=== PATIENT | female | born 1975 | race Caucasian/White ===

== ENCOUNTER 2018-02-07 15:55 | Observation (INO) | payer OTHER ==
[2018-02-07] MEDS ORDERED: ACETAMINOPHEN 1000 MG/100 ML VIAL (NON FORMULARY) IVPB ONE (18:59)
[2018-02-07 19:26] LABS: BASO % 0.2 % (0-2.0); EOS % 2.9 % (0-4.5); HEMATOCRIT 34.3 % (32.4-45.2); HEMOGLOBIN 11.4 GM/dL (10.7-15.3); LYMPH % 21.2 % (8-40); MCH 27.7 pg (25.7-33.7); MCHC 33.1 g/dl (32.0-36.0); MEAN CELL VOLUME 83.6 fl (80-96); MEAN PLT VOLUME 10.1 fl (7.5-11.1); MONO % 7.2 % (3.8-10.2); NEUT % 68.5 % (42.8-82.8); PLATELET COUNT 194 K/MM3 (134-434); RBC 4.11 M/mm3 (3.60-5.2); RDW 16.1 % (11.6-15.6); WHITE BLOOD COUNT 9.9 K/mm3 (4.0-10.0)
[2018-02-07] MEDS ORDERED: ACETAMINOPHEN INJECTION 100 ML IVPB ONE (19:28)
[2018-02-07 19:38] LABS: INR 1.14 (0.83-1.09); PROTHROMBIN TIME (PATIENT) 12.9 SEC (9.7-13.0)
[2018-02-07 19:48] LABS: ALBUMIN 3.7 g/dl (3.4-5.0); ANION GAP 8 (8-16); BILIRUBIN,TOTAL 0.4 mg/dL (0.2-1.0); BLOOD UREA NITROGEN 11 mg/dL (7-18); CALCIUM 8.8 mg/dL (8.5-10.1); CHLORIDE 103 mmol/L (98-107); CO2 30 mmol/L (21-32); CREATININE 0.9 mg/dL (0.55-1.02); GLUCOSE,RANDOM 104 mg/dL (74-106); POTASSIUM 4.5 mmol/L (3.5-5.1); SGOT/AST 27 U/L (15-37); SGPT/ALT 30 U/L (12-78); SODIUM 141 mmol/L (136-145); TOT PROT 7.4 g/dl (6.4-8.2)
[2018-02-07 19:49] LABS: ALK PHOS 78 U/L (45-117)
--- NOTE | 2018-02-07 21:08 | PDOC ---
History of Present Illness - General Chief Complaint: Pain Stated Complaint: PCP SENT FOR ADMIT Time Seen by Provider: 02/07/18 18:12 History Source: Patient Exam Limitations: No Limitations - History of Present Illness Initial Comments: This is a 42 YOF with h/o right kidney stone with hydronephrosis with cystoscopy /ureteroscopy/attempted right ureteral stent placement on 02/06/18 which was unsuccessful. She was instructed by her provider Dr. Norman Rae to come to the ED for admission to the hospital for an IR procedure with Dr. White tomorrow. The procedure is a percutaneous right nephrostomy. The patient notes she has been in a significant amount of pain and has not had medication today. She denies any additional symptoms. Past History - Past Medical History Allergies/Adverse Reactions: Allergies Allergy/AdvReac Type Severity Reaction Status Date / Time No Known Allergies Allergy Verified 02/07/18 16:21 Home Medications: Ambulatory Orders NK [No Known Home Medication] 02/07/18 COPD: No - Surgical History Cholecystectomy: Yes - Suicide/Smoking/Psychosocial Hx Smoking History: Never smoked Have you smoked in the past 12 months: No Information on smoking cessation initiated: No Hx Alcohol Use: No Drug/Substance Use Hx: No Substance Use Type: None *Physical Exam - Vital Signs Last Vital Signs Temp Pulse Resp BP Pulse Ox 98.5 F 84 16 121/89 100 02/07/18 16:19 02/07/18 16:19 02/07/18 16:19 02/07/18 16:19 02/07/18 16:19 ED Treatment Course - LABORATORY CBC & Chemistry Diagram: 02/07/18 18:42 02/07/18 18:42 - ADDITIONAL ORDERS Additional order review: Laboratory Results 02/07/18 02/07/18 18:42 18:42 PT with INR 12.90 INR 1.14 H PTT (Actin FS) 29.0 Sodium 141 Potassium 4.5 Chloride 103 Carbon Dioxide 30 Anion Gap 8 BUN 11 Creatinine 0.9 Creat Clearance w eGFR > 60 Random Glucose 104 Calcium 8.8 Total Bilirubin 0.4 AST 27 ALT 30 Alkaline Phosphatase 78 Total Protein 7.4 Albumin 3.7 02/07/18 18:42 RBC 4.11 MCV 83.6 MCHC 33.1 RDW 16.1 H MPV 10.1 Neutrophils % 68.5 Lymphocytes % 21.2 Monocytes % 7.2 Eosinophils % 2.9 Basophils % 0.2 - RADIOLOGY Radiology Studies Ordered: Category Date Time Status CHEST PA & LAT [RAD] Stat Radiology 02/07/18 19:56 Ordered - Medications Given in the ED: ED Medications Discontinued Medications Generic Name Dose Route Start Last Admin Trade Name Iqra PRN Reason Stop Dose Admin Acetaminophen 1,000 mg 02/07/18 18:59 02/07/18 19:34 Ofirmev Injection - IVPB 02/07/18 19:00 1,000 mg ONCE ONE Administration Medical Decision Making - Medical Decision Making 02/07/18 21:23 Adult patient p/w right flank pain 2/2 kidney stone for which she had a failed attempted ureteral stent placement 02/06/18. Sent by Dr. Norman Rae for admission and IR procedure tomorrow. I spoke with Dr. Rae who confirms IR procedure tomorrow with Dr. White, who is aware of the patient. Initial Vital Signs Temp Pulse Resp BP Pulse Ox 98.5 F 84 16 121/89 100 02/07/18 16:19 02/07/18 16:19 02/07/18 16:19 02/07/18 16:19 02/07/18 16:19 Exam: As noted in Physical Exam section. W/U ordered: Pre-admission/pre-op workup as noted below TX ordered: Tylenol EKG: Reviewed; results as noted in ECG Review section. CXR: Laboratory Tests 02/07/18 02/07/18 02/07/18 18:37 18:42 18:42 WBC 9.9 RBC 4.11 Hgb 11.4 Hct 34.3 MCV 83.6 MCH 27.7 MCHC 33.1 RDW 16.1 H Plt Count 194 MPV 10.1 Absolute Neuts (auto) 6.8 Neutrophils % 68.5 Lymphocytes % 21.2 Monocytes % 7.2 Eosinophils % 2.9 Basophils % 0.2 Nucleated RBC % 0 PT with INR 12.90 INR 1.14 H PTT (Actin FS) 29.0 Sodium Potassium Chloride Carbon Dioxide Anion Gap BUN Creatinine Creat Clearance w eGFR Random Glucose Calcium Total Bilirubin AST ALT Alkaline Phosphatase Total Protein Albumin Serum , Qual Negative Blood Type Antibody Screen 02/07/18 02/07/18 18:42 18:42 WBC RBC Hgb Hct MCV MCH MCHC RDW Plt Count MPV Absolute Neuts (auto) Neutrophils % Lymphocytes % Monocytes % Eosinophils % Basophils % Nucleated RBC % PT with INR INR PTT (Actin FS) Sodium 141 Potassium 4.5 Chloride 103 Carbon Dioxide 30 Anion Gap 8 BUN 11 Creatinine 0.9 Creat Clearance w eGFR > 60 Random Glucose 104 Calcium 8.8 Total Bilirubin 0.4 AST 27 ALT 30 Alkaline Phosphatase 78 Total Protein 7.4 Albumin 3.7 Serum , Qual Blood Type A POSITIVE Antibody Screen Negative Reassessment: Patient states pain somewhat improved with Tylenol. Repeat VS: 02/07/18 21:28 The Pt is unsafe for discharge at this time. They require further hospital observation, workup, and treatment. Microblog sent for admission to hospitalist team (at the request of Dr. Norman Rae). *DC/Admit/Observation/Transfer Diagnosis at time of Disposition: Right kidney stone - Discharge Dispostion Condition at time of disposition: Guarded Decision to Admit order: Yes - Referrals - Patient Instructions - Post Discharge Activity
--- NOTE | 2018-02-07 21:25 | PDOC ---
Attending Attestation - Resident Resident Name: Catrachita Pack - ED Attending Attestation I have performed the following: I have examined & evaluated the patient, The case was reviewed & discussed with the resident, I agree w/resident's findings & plan, Exceptions are as noted - Medical Decision Making 02/07/18 21:23 I, Dr. Zohra Perales, DO, attest that this document has been prepared under my direction and personally reviewed by me in its entirety. I further attest, that it accurately reflects all work, treatment, procedures and medical decision -making performed by me. 02/07/18 21:23 a/p: 42yo female with renal colic, grijalva catheter and failed cysto at [facility] -sent by Dr. Rae (urology) for nephrostomy tube placement tomorrow by IR -pt with R renal colic -will send pre-op labs -ekg -cxr -ua/ucx -pt with grijalva catheter in place upon arrival -family at the bedside updated on the plan 02/07/18 21:26 cxr clear labs reviewed and stable ua pending <Zohra Perales - Last Filed: 02/08/18 00:05> - HPI HPI: 02/08/18 01:43 The patient is a 42-year-old female, with a past medical history of renal colic , grijalva catheter in place, who was sent by Dr. Norman Rae from [facility] due to failed cystoscopy. Dr. Rae will be placing a nephrostomy tube tomorrow. Patient has been experiencing dysuria and hematuria. - Physicial Exam PE: 02/08/18 01:44 GENERAL: Awake, alert, and fully oriented, in no acute distress HEAD: No signs of trauma EYES: PERRLA, EOMI, sclera anicteric, conjunctiva clear ENT: Auricles normal inspection, hearing grossly normal, nares patent, oropharynx clear without exudates. Moist mucosa NECK: Normal ROM, supple, no lymphadenopathy, JVD, or masses LUNGS: Breath sounds equal, clear to auscultation bilaterally. No wheezes, and no crackles HEART: Regular rate and rhythm, normal S1 and S2, no murmurs, rubs or gallops ABDOMEN: (+)Suprapubic tenderness. Soft, normoactive bowel sounds. No guarding , no rebound. No masses MSK: (+)Right-sided CVA tenderness. EXTREMITIES: Normal range of motion, no edema. No clubbing or cyanosis. No cords, erythema, or tenderness NEUROLOGICAL: Cranial nerves II through XII grossly intact. SKIN: Warm, Dry, normal turgor, no rashes or lesions noted. <Tonya Vizcarra - Last Filed: 02/08/18 01:48> Heart Score/ECG Review - ECG Intrepretation Comment:: 02/08/18 00:05 sinus at 76, nl axis, nl interval, no acute st/t wave findings <Zohra Perales - Last Filed: 02/08/18 00:05> Attestations - Attestations 02/08/18 01:47 Documentation prepared by Tonya Vizcarra, acting as medical grade shoemaker for Zohra Perales DO. <Tonya Vizcarra - Last Filed: 02/08/18 01:48>
[2018-02-07 22:17] LABS: URINE APPEARANCE CLEAR; URINE BILIRUBIN NEGATIVE (<2.0 mg/dL); URINE COLOR STRAW; URINE GLUCOSE (UA) NEGATIVE (NEGATIVE); URINE KETONE NEGATIVE (NEGATIVE); URINE NITRITE NEGATIVE (NEGATIVE); URINE UROBILINOGEN NEGATIVE mg/dL (0.2-1.0)
[2018-02-07] MEDS: SODIUM CHLORIDE 1,000 ML IV SCH (22:20)
--- NOTE | 2018-02-07 22:21 | HP ---
CHIEF COMPLAINT: Right kidney stone with hydronephrosis PCP: HISTORY OF PRESENT ILLNESS: 42 yo female with recent history R renal calculus and hydronephrosis presented to the ED after being sent by her Urologist Dr. Rae for IR procedure tomorrow. She says that the stone was diagnose 6 days ago at [facility] where she presented with right flank pain. She states that she did have fever while there 3 days ago but has not been febrile since. She underwent cystoscopy and ureteroscopy, however a stent was unable to be placed. Dr Rae discussed case with IR here and plan is for Right Nephrostomy placement tomorrow. She is endorsing 6/10 right flank pain at this time and says at its worst the pain is a 10/10. Review of systems positive for headache, one episode of SOB at [facility] 3 days ago. Pt denies fevers currently, SOB, chest pain, constipation or diarrhea. ER course was notable for: (1) CBC, CMP, Coags within range (2) CXR noted no acute lung pathology (3) UA ordered but uncollected as of now Recent Travel: none PAST MEDICAL HISTORY: none PAST SURGICAL HISTORY: Cholecystectomy Social History: Smoking: none Alcohol: none Drugs: none Family History: Allergies No Known Allergies Allergy (Verified 02/07/18 16:21) HOME MEDICATIONS: Home Medications Medication Instructions Recorded NK [No Known Home Medication] 02/07/18 REVIEW OF SYSTEMS CONSTITUTIONAL: Absent: fever, chills, diaphoresis, generalized weakness, malaise, loss of appetite, weight change HEENT: Absent: rhinorrhea, nasal congestion, throat pain, throat swelling, difficulty swallowing, mouth swelling, ear pain, eye pain, visual changes CARDIOVASCULAR: Absent: chest pain, syncope, palpitations, irregular heart rate, lightheadedness , peripheral edema RESPIRATORY: Absent: cough, shortness of breath, dyspnea with exertion, orthopnea, wheezing, stridor, hemoptysis GASTROINTESTINAL: abdominal pain Absent: , abdominal distension, nausea, vomiting, diarrhea, constipation, melena , hematochezia GENITOURINARY: flank pain Absent: dysuria, frequency, urgency, hesitancy, hematuria, , genital pain MUSCULOSKELETAL: Absent: myalgia, arthralgia, joint swelling, back pain, neck pain SKIN: Absent: rash, itching, pallor HEMATOLOGIC/IMMUNOLOGIC: Absent: easy bleeding, easy bruising, lymphadenopathy, frequent infections ENDOCRINE: Absent: unexplained weight gain, unexplained weight loss, heat intolerance, cold intolerance NEUROLOGIC: Absent: headache, focal weakness or paresthesias, dizziness, unsteady gait, seizure, mental status changes, bladder or bowel incontinence PSYCHIATRIC: Absent: anxiety, depression, suicidal or homicidal ideation, hallucinations. PHYSICAL EXAMINATION Vital Signs - 24 hr 02/07/18 02/07/18 16:19 21:14 Temperature 98.5 F Pulse Rate 84 Pulse Rate [ 79 Radial] Respiratory 16 18 Rate Blood Pressure 121/89 Blood Pressure 131/79 [Right Arm] O2 Sat by Pulse 100 100 Oximetry (%) GENERAL: A&O, no acute distress HEAD: Normocephalic, atraumatic. EYES: PERRL, EOMI, no scleral icterus EARS, NOSE, THROAT: oropharynx clear without exudates. Moist mucous membranes. NECK: supple without lymphadenopathy LUNGS: CTA b/l, no crackles or wheezes HEART: Regular rate and rhythm, normal S1 and S2 without murmur, rub or gallop. ABDOMEN: Tender to palpation diffusely, worst on the right flank with gaurding, normoactive bowel sounds : Mendez in place and draining urine MUSCULOSKELETAL: No bony deformities or tenderness. No CVA tenderness. UPPER EXTREMITIES: 2+ pulses, warm, well-perfused. No cyanosis. No clubbing. No peripheral edema. LOWER EXTREMITIES: 2+ pulses, warm, well-perfused. No calf tenderness. No peripheral edema. NEUROLOGICAL: Cranial nerves II-XII grossly intact. Normal speech. PSYCHIATRIC: Cooperative. Good eye contact. Appropriate mood and affect. SKIN: Warm, dry, normal turgor, no rashes or lesions noted Laboratory Results - last 24 hr 02/07/18 02/07/18 02/07/18 18:37 18:42 18:42 WBC 9.9 RBC 4.11 Hgb 11.4 Hct 34.3 MCV 83.6 MCH 27.7 MCHC 33.1 RDW 16.1 H Plt Count 194 MPV 10.1 Absolute Neuts (auto) 6.8 Neutrophils % 68.5 Lymphocytes % 21.2 Monocytes % 7.2 Eosinophils % 2.9 Basophils % 0.2 Nucleated RBC % 0 PT with INR 12.90 INR 1.14 H PTT (Actin FS) 29.0 Sodium Potassium Chloride Carbon Dioxide Anion Gap BUN Creatinine Creat Clearance w eGFR Random Glucose Calcium Total Bilirubin AST ALT Alkaline Phosphatase Total Protein Albumin Serum , Qual Negative Blood Type Antibody Screen 02/07/18 02/07/18 18:42 18:42 WBC RBC Hgb Hct MCV MCH MCHC RDW Plt Count MPV Absolute Neuts (auto) Neutrophils % Lymphocytes % Monocytes % Eosinophils % Basophils % Nucleated RBC % PT with INR INR PTT (Actin FS) Sodium 141 Potassium 4.5 Chloride 103 Carbon Dioxide 30 Anion Gap 8 BUN 11 Creatinine 0.9 Creat Clearance w eGFR > 60 Random Glucose 104 Calcium 8.8 Total Bilirubin 0.4 AST 27 ALT 30 Alkaline Phosphatase 78 Total Protein 7.4 Albumin 3.7 Serum , Qual Blood Type A POSITIVE Antibody Screen Negative ASSESSMENT/PLAN: 42 yo female with no PMH presents with prior dx of Right renal calculus with hydronephrosis s/p cystoscopy/ureteroscopy with failed stent placement. Found to have UTI with clinical appearance of pyelonephritis. Presents for nephrostomy placement tomorrow by IR Renal Calculus with [place] -dx at [facility] 6 days ago -s/p failed stent placement -Renal U/S -CT abdomen and pelvis -IR nephrostomy scheduled -Pain control with Tylenol and Morphine -Mendez in place and draining urine Pyelonephritis -UA with 2+ Leukocyte esterase, 25 WBC's -Pt has CVA tenderness on exam in addition to guarding and tenderness of the right flank, suggestive of pyelo -Rocephin 2 gm IV Daily -Urine c/s ordered FEN -Fluids: NS @ 75 cc/hr -Electrolytes: no abnormalities, BMP in AM -Nutrition: NPO for nephrostomy in AM DVT Prophylaxis -Heparin 5000 Units SQ TID Disposition Observation Visit type - Emergency Visit Emergency Visit: Yes ED Registration Date: 02/07/18 Care time: The patient presented to the Emergency Department on the above date and was hospitalized for further evaluation of their emergent condition. - New Patient This patient is new to me today: Yes Date on this admission: 02/08/18 - Critical Care Critical Care patient: No Hospitalist Screening - Colonoscopy Questionnaire Colonoscopy Questionnaire: Colonoscopy Questionnaire - Patient: 50 - 75 years old and never had a screening colonoscopy: No History of colon or rectal polyps, or CA: No History of IBD, Crohn's disease or UC: No History of abdominal radiation therapy as a child: No - Relative: 1 with colon or rectal CA, or polyps at age 60 or younger: No Colon or rectal CA diagnosed at age 45 or younger: No Multiple relatives with colon or rectal CA: No - Outcome: Screening Result: Negative Screen
[2018-02-07 22:56] LABS: URINE LEUK ESTERASE 2+ (NEGATIVE); URINE PROTEIN 1+ (NEGATIVE)
[2018-02-07 23:01] LABS: EPI CELLS RARE /HPF (FEW); URINE MUCUS RARE
[2018-02-08] MEDS ORDERED: KETOROLAC TROMETHAMINE 15 MG/ML VIAL IVPUSH ONE (00:28)
[2018-02-08] MEDS ORDERED: KETOROLAC TROMETHAMINE 30 MG/1 ML VIAL ONE (00:35)
[2018-02-08] MEDS ORDERED: PHENAZOPYRIDINE HCL 100 MG TABLET (FP) PO ONE (00:41)
[2018-02-08] MEDS ORDERED: PHENAZOPYRIDINE HCL 100 MG TABLET (FP) ONE (01:00)
--- NOTE | 2018-02-08 02:38 | PN ---
Teaching Attending Note Name of Resident: Mak Devries ATTENDING PHYSICIAN STATEMENT I saw and evaluated the patient. Chart, data, imaging reviewed. I reviewed the resident's note and discussed the case with the resident. I agree with the resident's findings and plan as documented. SUBJECTIVE: 42 yo woman with hx of right sided nephrolithiasis was sent to hospital by Dr. Rae for placement of right sided nephrostomy after unsuccessful attempt to place right sided ureter stent. Patient c/o right sided flank pain for the last 3 days. One episode of subjective fevers and chills 3 days ago. +Nausea and vomiting. OBJECTIVE: Last Vital Signs Temp Pulse Resp BP Pulse Ox 98.5 F 79 18 131/79 100 02/07/18 16:19 02/07/18 21:14 02/07/18 21:14 02/07/18 21:14 02/07/18 21:14 General- nad, aaox3 heent- at, nc, moist oral mucosa neck -supple cv- s1+S2+ rrr chest- cta b/l abdomen- soft, bs+, right sided flank tenderness, +CVA tenderness ext - no pedal edema Abnormal Lab Results 02/07/18 02/07/18 02/07/18 18:42 18:42 22:00 RDW 16.1 H INR 1.14 H Urine Protein 1+ H Urine Blood 3+ H Ur Leukocyte Esterase 2+ H ASSESSMENT AND PLAN: #42yo woman with Hx of right sided nephrolithiasis for placement of right sided nephrostomy. Cannot r/o pyelonephritis as there is pyuria on UA and right sided flank tenderness. -observation -urology consult -CT of abdomen and pelvis -IV fluid hydration -urine culture -ceftriaxone 1g IV q24hrs -NPO -heparin sc for DVT ppx
[2018-02-08] MEDS ORDERED: morphine SULFATE 4 MG/ML VIAL IVPUSH PRN (02:47)
[2018-02-08] MEDS ORDERED: CEFTRIAXONE 2 GM in DEXTROSE 5%-WATER 100 ML IVPB ONE (03:15)
[2018-02-08] MEDS ORDERED: CEFTRIAXONE 2 GM/100 ML BAG IVPB ONE (04:31)
[2018-02-08 07:22] LABS: BASO % 0.2 % (0-2.0); EOS % 4.8 % (0-4.5); HEMATOCRIT 32.5 % (32.4-45.2); LYMPH % 25.9 % (8-40); MCH 28.3 pg (25.7-33.7); MEAN CELL VOLUME 83.4 fl (80-96); MONO % 7.8 % (3.8-10.2); NEUT % 61.3 % (42.8-82.8); PLATELET COUNT 183 K/MM3 (134-434); RDW 15.9 % (11.6-15.6); WHITE BLOOD COUNT 7.8 K/mm3 (4.0-10.0)
[2018-02-08 08:40] LABS: CHLORIDE 106 mmol/L (98-107); POTASSIUM 4.7 mmol/L (3.5-5.1); SODIUM 143 mmol/L (136-145)
[2018-02-08 08:57] LABS: ALBUMIN 3.3 g/dl (3.4-5.0); ALK PHOS 77 U/L (45-117); ANION GAP 10 (8-16); BILIRUBIN,TOTAL 0.3 mg/dL (0.2-1.0); BLOOD UREA NITROGEN 9 mg/dL (7-18); CALCIUM 8.6 mg/dL (8.5-10.1); CO2 27 mmol/L (21-32); CREATININE 0.7 mg/dL (0.55-1.02); GLUCOSE,RANDOM 90 mg/dL (74-106); MAGNESIUM 2.1 mg/dL (1.8-2.4); PHOSPHOROUS 3.6 mg/dL (2.5-4.9); SGOT/AST 21 U/L (15-37); SGPT/ALT 27 U/L (12-78); TOT PROT 6.9 g/dl (6.4-8.2)
[2018-02-08] MEDS: SODIUM CHLORIDE 1,000 ML IV SCH ×2 (10:44→23:31)
[2018-02-08] MEDS ORDERED: morphine SULFATE 4 MG/ML VIAL ONE (13:09)
--- NOTE | 2018-02-08 14:19 | PN ---
Teaching Attending Note Name of Resident: Hiren Moreno ATTENDING PHYSICIAN STATEMENT I reviewed the resident's note and discussed the case with the resident. I agree with the resident's findings and plan as documented. pt has been in the OR for procedure. case d/w resident ASSESSMENT AND PLAN: 42yo F with recent dx of R nephrolithasis with failed attempt for UV stent placement at [facility] on 02/06/18 presented here iwth worsening R flank pain with assoc with chills 1. R nephrolithasis with hydronephrosis- failed attempt at stent placement. NPO for nephrostomy tube placement. in procedure now. will f/u urology recommendations post-procedure. pain control 2. Complicated UTI- no per-renal stranding suggestive of pyleo. started on Ceftriaxone. will cont f/u Cx. 3. DVT ppx- hep sq
--- NOTE | 2018-02-08 15:35 | EKG ---
Test Reason : Blood Pressure : / mmHG Vent. Rate : 076 BPM Atrial Rate : 076 BPM P-R Int : 126 ms QRS Dur : 074 ms QT Int : 378 ms P-R-T Axes : 053 038 014 degrees QTc Int : 425 ms NORMAL SINUS RHYTHM NORMAL ECG NO PREVIOUS ECGS AVAILABLE Confirmed by PHILIP VILLATORO MD ([id number]) on 02/08/2018 3:34:47 PM Referred By: Confirmed By:PHILIP VILLATORO MD
[2018-02-08] MEDS ORDERED: ONDANSETRON 4 MG/2 ML VIAL IVPUSH ONE (15:45)
[2018-02-08 16:50] VITALS: BMI 24.3
--- NOTE | 2018-02-08 17:30 | PN ---
Physical Exam: SUBJECTIVE: Patient seen and examined at bedside. admitted overnight. no new complaints. underwent this morning for nephrostomy w/ IR. Denies any fever, CP , SOB, n/v/d. OBJECTIVE: Vital Signs Period Temp Pulse Resp BP Sys/Xiao Pulse Ox Last 24 Hr 98.1 F-98.2 F 72-93 12-20 105-166/68-97 97-100 GENERAL: A&Ox3, mild acute distress HEAD: NCAT EYES: PERRL, EOMI, no scleral icterus EARS, NOSE, THROAT: oropharynx clear without exudates. MMM NECK: supple without lymphadenopathy LUNGS: CTA b/l, no crackles or wheezes HEART: RRR, normal S1 and S2 without murmur, rub or gallop. ABDOMEN: Tender to palpation diffusely, worst on the right flank with guarding, normoactive bowel sounds : Mendez in place and draining urine MUSCULOSKELETAL: No bony deformities or tenderness. +CVA tenderness. UPPER EXTREMITIES: 2+ pulses, warm, well-perfused. No cyanosis. No clubbing. No peripheral edema. LOWER EXTREMITIES: 2+ pulses, warm, well-perfused. No calf tenderness. No peripheral edema. NEUROLOGICAL: Cranial nerves II-XII grossly intact. Normal speech. PSYCHIATRIC: Cooperative. Good eye contact. Appropriate mood and affect. SKIN: Warm, dry, normal turgor, no rashes or lesions noted Laboratory Results - last 24 hr 02/07/18 02/07/18 02/07/18 18:37 18:42 18:42 WBC 9.9 RBC 4.11 Hgb 11.4 Hct 34.3 MCV 83.6 MCH 27.7 MCHC 33.1 RDW 16.1 H Plt Count 194 MPV 10.1 Absolute Neuts (auto) 6.8 Neutrophils % 68.5 Lymphocytes % 21.2 Monocytes % 7.2 Eosinophils % 2.9 Basophils % 0.2 Nucleated RBC % 0 PT with INR 12.90 INR 1.14 H PTT (Actin FS) 29.0 Sodium Potassium Chloride Carbon Dioxide Anion Gap BUN Creatinine Creat Clearance w eGFR Random Glucose Calcium Phosphorus Magnesium Total Bilirubin AST ALT Alkaline Phosphatase Total Protein Albumin Serum , Qual Negative Urine Color Urine Appearance Urine pH Ur Specific [place] Urine Protein Urine Glucose (UA) Urine Ketones Urine Blood Urine Nitrite Urine Bilirubin Urine Urobilinogen Ur Leukocyte Esterase Urine WBC (Auto) Urine RBC (Auto) Ur Epithelial Cells Urine Mucus Blood Type Antibody Screen 02/07/18 02/07/18 02/07/18 18:42 18:42 22:00 WBC RBC Hgb Hct MCV MCH MCHC RDW Plt Count MPV Absolute Neuts (auto) Neutrophils % Lymphocytes % Monocytes % Eosinophils % Basophils % Nucleated RBC % PT with INR INR PTT (Actin FS) Sodium 141 Potassium 4.5 Chloride 103 Carbon Dioxide 30 Anion Gap 8 BUN 11 Creatinine 0.9 Creat Clearance w eGFR > 60 Random Glucose 104 Calcium 8.8 Phosphorus Magnesium Total Bilirubin 0.4 AST 27 ALT 30 Alkaline Phosphatase 78 Total Protein 7.4 Albumin 3.7 Serum , Qual Urine Color Straw Urine Appearance Clear Urine pH 6.0 Ur Specific [place] 1.008 Urine Protein 1+ H Urine Glucose (UA) Negative Urine Ketones Negative Urine Blood 3+ H Urine Nitrite Negative Urine Bilirubin Negative Urine Urobilinogen Negative Ur Leukocyte Esterase 2+ H Urine WBC (Auto) 25 Urine RBC (Auto) 12 Ur Epithelial Cells Rare Urine Mucus Rare Blood Type A POSITIVE Antibody Screen Negative 02/08/18 02/08/18 06:30 06:30 WBC 7.8 RBC 3.90 Hgb 11.0 Hct 32.5 MCV 83.4 MCH 28.3 MCHC 34.0 RDW 15.9 H Plt Count 183 MPV 10.0 Absolute Neuts (auto) 4.8 Neutrophils % 61.3 Lymphocytes % 25.9 D Monocytes % 7.8 Eosinophils % 4.8 H Basophils % 0.2 Nucleated RBC % 0 PT with INR INR PTT (Actin FS) Sodium 143 Potassium 4.7 Chloride 106 Carbon Dioxide 27 Anion Gap 10 BUN 9 Creatinine 0.7 Creat Clearance w eGFR > 60 Random Glucose 90 Calcium 8.6 Phosphorus 3.6 Magnesium 2.1 Total Bilirubin 0.3 AST 21 ALT 27 Alkaline Phosphatase 77 Total Protein 6.9 Albumin 3.3 L Serum , Qual Urine Color Urine Appearance Urine pH Ur Specific [place] Urine Protein Urine Glucose (UA) Urine Ketones Urine Blood Urine Nitrite Urine Bilirubin Urine Urobilinogen Ur Leukocyte Esterase Urine WBC (Auto) Urine RBC (Auto) Ur Epithelial Cells Urine Mucus Blood Type Antibody Screen Active Medications Generic Name Dose Route Start Last Admin Trade Name Freq PRN Reason Stop Dose Admin Acetaminophen 1,000 mg 02/07/18 22:22 Ofirmev Injection - IVPB Q6H PRN PAIN LEVEL 4 - 6 Sodium Chloride 1,000 mls @ 75 mls/hr 02/07/18 22:15 02/08/18 10:44 Normal Saline - IV 75 mls/hr ASDIR ZAHIRA Administration Morphine Sulfate 4 mg 02/08/18 02:47 02/08/18 13:27 Morphine Sulfate IVPUSH 4 mg Q4H PRN Administration PAIN LEVEL 7 - 10 ASSESSMENT/PLAN: 42 yo female with no PMH presents with prior dx of Right renal calculus with hydronephrosis s/p cystoscopy/ureteroscopy with failed stent placement at [facility] on 02/06/18, p/w worsening R flank pain and chills Found to have UTI with clinical appearance of pyelonephritis. Now s/p nephrostomy placement by IR. #R nephrolithasis with hydronephrosis - s/p failed stent placement -dx at [facility] 6 days ago -Renal U/S -CT abdomen and pelvis -Now s/p IR nephrostomy -Pain control with Tylenol and Morphine -Mendez in place and draining urine -f/u urology recommendations post-procedure. -zofran for nausea #Complicated UTI - no per-renal stranding suggestive of pyleo on imaging -UA with 2+ Leukocyte esterase, 25 WBC's -Rocephin 2 gm IV Daily -Urine cx were uncollected -f/u nephrostomy tube fluid cx #FEN -Fluids: NS @ 75 cc/hr -Electrolytes: no abnormalities, BMP in AM -Nutrition: regular diet following procedure #DVT Prophylaxis -Heparin 5000 Units SQ TID #Disposition medsurg Visit type - Emergency Visit Emergency Visit: Yes ED Registration Date: 02/07/18 Care time: The patient presented to the Emergency Department on the above date and was hospitalized for further evaluation of their emergent condition. - New Patient This patient is new to me today: Yes Date on this admission: 02/08/18 - Critical Care Critical Care patient: No
[2018-02-08] MEDS: ACETAMINOPHEN 1000 MG/100 ML VIAL (NON FORMULARY) IVPB PRN (19:56)
[2018-02-09] MEDS: ACETAMINOPHEN 1000 MG/100 ML VIAL (NON FORMULARY) IVPB PRN ×3 (01:26→11:50)
[2018-02-09 08:10] LABS: INR 1.19 (0.83-1.09); PROTHROMBIN TIME (PATIENT) 13.4 SEC (9.7-13.0)
--- NOTE | 2018-02-09 08:21 | CONS ---
DATE OF CONSULTATION: DATE OF DICTATION: 02/08/2018 The patient is a 42-year-old female admitted via the emergency room with right renal colic and right hydronephrosis. The patient was an inpatient at [facility], where she was admitted via the emergency room with right hydronephrosis due to a 5-mm stone in the right ureterovesical junction. After 3 days of conservative treatment with fluids and Flomax, the patient was taken to the OR and multiple attempts at passage of a Glidewire and/or stent were unsuccessful due to an impacted right ureterovesical stone inside a right ureterocele. The patient was discharged from the hospital and was add to [facility] via the emergency room, complaining of right flank pain. She is to undergo a right percutaneous nephrostomy to relieve her right hydroureteronephrosis as well as right renal colic with possible infundibular extravasation of urine in the right perirenal space. The patient does have history of a cholecystectomy in the past. She denies any ethanol or tobacco. In the emergency room, the patient was afebrile. Her pulse was 84, respirations 16, blood pressure 121/89, O2 saturation 100%. Her CBC revealed a white count of 9.9, hemoglobin 11.4, hematocrit 34.3, platelets 194. The patient's BUN and creatinine were within normal limits at 11 and 0.9, respectively. PT/INR was 12.9/1.14. Anion gap was 8. The patient had a CAT scan in the emergency room, and this revealed a right hydroureteronephrosis with a 5-mm stone impacted at the right ureterovesical junction. The patient also had non-obstructing stones in the left kidney. A Mendez catheter was seen in the bladder, which was collapsed. On February 08, 2018, the patient underwent percutaneous nephrostomy tube placement on the right side. She had a benign and uneventful postoperative course. Presently the patient is afebrile. She denies nausea, vomiting or flank pain. Her white count is 9.9. Her urine culture is pending. Nephrostomy tube drainage is also pending. Her latest vital signs revealed a temperature of 98 and a blood pressure of 146/86. The patient is presently urologically cleared for discharge. We will schedule the patient electively, in 1 week's time, to undergo a ureteroscopic laser lithotripsy, placement of a JJ stent and removal of her right percutaneous nephrostomy tube. I will follow with you. JOE ENCINAS M.D. [id number]
[2018-02-09 08:28] LABS: BASO % 0.3 % (0-2.0); HEMOGLOBIN 11.2 GM/dL (10.7-15.3); LYMPH % 22.8 % (8-40); MCH 28.4 pg (25.7-33.7); MEAN CELL VOLUME 83.7 fl (80-96); MEAN PLT VOLUME 9.8 fl (7.5-11.1); MONO % 8.1 % (3.8-10.2); NEUT % 62.8 % (42.8-82.8); PLATELET COUNT 185 K/MM3 (134-434); RBC 3.95 M/mm3 (3.60-5.2); WHITE BLOOD COUNT 8.7 K/mm3 (4.0-10.0)
[2018-02-09 08:43] LABS: ALBUMIN 3.5 g/dl (3.4-5.0); ANION GAP 9 (8-16); BLOOD UREA NITROGEN 8 mg/dL (7-18); CALCIUM 8.9 mg/dL (8.5-10.1); CHLORIDE 105 mmol/L (98-107); CO2 27 mmol/L (21-32); CREATININE 0.7 mg/dL (0.55-1.02); GLUCOSE,RANDOM 88 mg/dL (74-106); MAGNESIUM 1.9 mg/dL (1.8-2.4); PHOSPHOROUS 3.7 mg/dL (2.5-4.9); POTASSIUM 4.6 mmol/L (3.5-5.1); SGOT/AST 19 U/L (15-37); SGPT/ALT 28 U/L (12-78); SODIUM 141 mmol/L (136-145)
[2018-02-09 08:45] LABS: ALK PHOS 75 U/L (45-117); BILIRUBIN,TOTAL 0.4 mg/dL (0.2-1.0)
--- NOTE | 2018-02-09 08:55 | PN ---
Teaching Attending Note Name of Resident: Hiren Moreno (y) ATTENDING PHYSICIAN STATEMENT I saw and evaluated the patient. I reviewed the resident's note and discussed the case with the resident. I agree with the resident's findings and plan as documented. SUBJECTIVE: Patient is c/o having back pain and does not want to go home. OBJECTIVE: Vital Signs Temperature 98.3 F 02/09/18 06:00 Pulse Rate 73 02/09/18 06:00 Respiratory Rate 18 02/09/18 06:00 Blood Pressure 126/85 02/09/18 06:00 O2 Sat by Pulse Oximetry (%) 100 02/08/18 21:00 CBCD WBC 8.7 K/mm3 (4.0-10.0) 02/09/18 07:30 RBC 3.95 M/mm3 (3.60-5.2) 02/09/18 07:30 Hgb 11.2 GM/dL (10.7-15.3) 02/09/18 07:30 Hct 33.0 % (32.4-45.2) 02/09/18 07:30 MCV 83.7 fl (80-96) 02/09/18 07:30 MCHC 34.0 g/dl (32.0-36.0) 02/09/18 07:30 RDW 16.0 % (11.6-15.6) H 02/09/18 07:30 Plt Count 185 K/MM3 (134-434) 02/09/18 07:30 MPV 9.8 fl (7.5-11.1) 02/09/18 07:30 CMP Sodium 141 mmol/L (136-145) 02/09/18 07:30 Potassium 4.6 mmol/L (3.5-5.1) 02/09/18 07:30 Chloride 105 mmol/L (98-107) 02/09/18 07:30 Carbon Dioxide 27 mmol/L (21-32) 02/09/18 07:30 Anion Gap 9 (8-16) 02/09/18 07:30 BUN 8 mg/dL (7-18) 02/09/18 07:30 Creatinine 0.7 mg/dL (0.55-1.02) 02/09/18 07:30 Creat Clearance w eGFR > 60 (>60) 02/09/18 07:30 Random Glucose 88 mg/dL (74-106) 02/09/18 07:30 Calcium 8.9 mg/dL (8.5-10.1) 02/09/18 07:30 Total Bilirubin 0.4 mg/dL (0.2-1.0) 02/09/18 07:30 AST 19 U/L (15-37) 02/09/18 07:30 ALT 28 U/L (12-78) 02/09/18 07:30 Alkaline Phosphatase 75 U/L (45-117) 02/09/18 07:30 Total Protein 7.0 g/dl (6.4-8.2) 02/09/18 07:30 Albumin 3.5 g/dl (3.4-5.0) 02/09/18 07:30 Current Medications Generic Name Dose Route Start Last Admin Trade Name Freq PRN Reason Stop Dose Admin Acetaminophen 1,000 mg 02/07/18 22:22 02/09/18 07:01 Ofirmev Injection - IVPB 1,000 mg Q6H PRN Administration PAIN LEVEL 4 - 6 Sodium Chloride 1,000 mls @ 75 mls/hr 02/07/18 22:15 02/08/18 23:31 Normal Saline - IV 75 mls/hr ASDIR ZAHIRA Administration Ceftriaxone Sodium 2 gm/ 100 mls @ 200 mls/hr 02/09/18 10:00 Dextrose IVPB DAILY ZAHIRA Protocol Morphine Sulfate 4 mg 02/08/18 02:47 02/08/18 13:27 Morphine Sulfate IVPUSH 4 mg Q4H PRN Administration PAIN LEVEL 7 - 10 Home Medications Medication Instructions Recorded NK [No Known Home Medication] 02/07/18 Microbiology 02/08/18 12:40 Nephrostomy Tube Drainage Gram Stain - Final PE; per resident's note ASSESSMENT AND PLAN: 42yo F with recent dx of R nephrolithasis with failed attempt for JJ stent placement at [facility] on 02/06/18 presented here eith worsening R flank pain and chills # R nephrolithasis with hydronephrosis- failed attempt at stent placement. s/p right nephrostomy tube placement. in procedure now. will f/u urology recommendations post-procedure. pain control # Complicated UTI/pylonephritis on IV Ceftriaxone. culture so far negative . DVT ppx- hep sq
[2018-02-09] MEDS ORDERED: DEXTROSE 5%-WATER 100 ML IVPB ONE (09:30)
[2018-02-09] MEDS: CEFTRIAXONE 2 GM in DEXTROSE 5%-WATER 100 ML IVPB SCH (09:52)
[2018-02-09] MEDS ORDERED: ACETAMINOPHEN/CAFFEINE/BUTALBITAL 1 TAB PO ONE (15:02)
--- NOTE | 2018-02-09 16:36 | PN ---
Physical Exam: SUBJECTIVE: Patient seen and examined at bedside. c/o back pain and dizziness. underwent yesterday nephrostomy w/ IR. Denies any fever, CP , SOB, n/v/d. OBJECTIVE: Vital Signs Period Temp Pulse Resp BP Sys/Xiao Pulse Ox Last 24 Hr 97.6 F-98.6 F 67-75 18-20 126-146/80-88 100-100 GENERAL: A&Ox3, mild acute distress HEAD: NCAT EYES: PERRL, EOMI, no scleral icterus EARS, NOSE, THROAT: oropharynx clear without exudates. MMM NECK: supple without lymphadenopathy LUNGS: CTA b/l, no crackles or wheezes HEART: RRR, normal S1 and S2 without murmur, rub or gallop. ABDOMEN: Tender to palpation diffusely, worst on the right flank with guarding, normoactive bowel sounds : pt has grijalva draining yellow-clear urine no clots. Nephrostomy tube in place , serosanguinous fluid. no pus or discharge. MUSCULOSKELETAL: No bony deformities or tenderness. +CVA tenderness. UPPER EXTREMITIES: 2+ pulses, warm, well-perfused. No cyanosis. No clubbing. No peripheral edema. LOWER EXTREMITIES: 2+ pulses, warm, well-perfused. No calf tenderness. No peripheral edema. NEUROLOGICAL: Cranial nerves II-XII grossly intact. Normal speech. PSYCHIATRIC: Cooperative. Good eye contact. Appropriate mood and affect. SKIN: Warm, dry, normal turgor, no rashes or lesions noted Laboratory Results - last 24 hr 02/08/18 02/09/18 02/09/18 19:25 07:30 07:30 WBC 8.7 RBC 3.95 Hgb 11.2 Hct 33.0 MCV 83.7 MCH 28.4 MCHC 34.0 RDW 16.0 H Plt Count 185 MPV 9.8 Absolute Neuts (auto) 5.5 Neutrophils % 62.8 Lymphocytes % 22.8 Monocytes % 8.1 Eosinophils % 6.0 H Basophils % 0.3 Nucleated RBC % 0 PT with INR 13.40 H INR 1.19 H PTT (Actin FS) 28.8 Sodium Potassium Chloride Carbon Dioxide Anion Gap BUN Creatinine Creat Clearance w eGFR Random Glucose Calcium Phosphorus Magnesium Total Bilirubin AST ALT Alkaline Phosphatase Total Protein Albumin 02/09/18 07:30 WBC RBC Hgb Hct MCV MCH MCHC RDW Plt Count MPV Absolute Neuts (auto) Neutrophils % Lymphocytes % Monocytes % Eosinophils % Basophils % Nucleated RBC % PT with INR INR PTT (Actin FS) Sodium 141 Potassium 4.6 Chloride 105 Carbon Dioxide 27 Anion Gap 9 BUN 8 Creatinine 0.7 Creat Clearance w eGFR > 60 Random Glucose 88 Calcium 8.9 Phosphorus 3.7 Magnesium 1.9 Total Bilirubin 0.4 AST 19 ALT 28 Alkaline Phosphatase 75 Total Protein 7.0 Albumin 3.5 Active Medications Generic Name Dose Route Start Last Admin Trade Name Iqra PRN Reason Stop Dose Admin Sodium Chloride 1,000 mls @ 75 mls/hr 02/07/18 22:15 02/08/18 23:31 Normal Saline - IV 75 mls/hr ASDIR ZAHIRA Administration Ceftriaxone Sodium 2 gm/ 100 mls @ 200 mls/hr 02/09/18 10:00 02/09/18 09:52 Dextrose IVPB 200 mls/hr DAILY ZAHIRA Administration Protocol ASSESSMENT/PLAN: 42 yo female with no PMH presents with prior dx of Right renal calculus with hydronephrosis s/p cystoscopy/ureteroscopy with failed stent placement at [facility] on 02/06/18, p/w worsening R flank pain and chills Found to have UTI with clinical appearance of pyelonephritis. Now s/p nephrostomy placement by IR. #R nephrolithasis with hydronephrosis - s/p failed stent placement. Nephrostomy tube in place, serosanguinous fluid. no pus or discharge. -dx at [facility] 6 days ago -Renal U/S -CT abdomen and pelvis -Now s/p IR nephrostomy -f/u w/ Dr. Butch ramirez in 1 week -Pain control with Tylenol -d/c Grijalva -f/u urology recommendations post-procedure. -zofran for nausea #Complicated UTI - no per-renal stranding suggestive of pyleo on imaging -UA with 2+ Leukocyte esterase, 25 WBC's -Rocephin 2 gm IV Daily day2 -Urine cx were uncollected -f/u nephrostomy tube fluid cx #FEN -Fluids: NS @ 75 cc/hr -Electrolytes: no abnormalities, BMP in AM -Nutrition: regular diet following procedure #DVT Prophylaxis -Heparin 5000 Units SQ TID #Disposition medsurg -PT eval -requesting work note upon d/c Visit type - Emergency Visit Emergency Visit: Yes ED Registration Date: 02/07/18 Care time: The patient presented to the Emergency Department on the above date and was hospitalized for further evaluation of their emergent condition. - New Patient This patient is new to me today: Yes Date on this admission: 02/09/18 - Critical Care Critical Care patient: No
[2018-02-09] MEDS ORDERED: ACETAMINOPHEN 325 MG TABLET (FP) PO PRN (20:00)
[2018-02-09] MEDS: SODIUM CHLORIDE 1,000 ML IV SCH (22:00)
[2018-02-09] MEDS ORDERED: ACETAMINOPHEN 1000 MG/100 ML VIAL (NON FORMULARY) IVPB ONE (22:05)
[2018-02-10] MEDS: SODIUM CHLORIDE 1,000 ML IV SCH (04:00)
[2018-02-10] MEDS ORDERED: DEXTROSE 5%-WATER 100 ML IVPB ONE (09:16)
[2018-02-10] MEDS: CEFTRIAXONE 2 GM in DEXTROSE 5%-WATER 100 ML IVPB SCH (09:23)
--- NOTE | 2018-02-10 12:01 | DS ---
Physical Exam: SUBJECTIVE: Patient seen and examined Patient is feeling better with no acute distress, would like to go home. No nausea or vomiting, no shortness of breath. Translation was done by ROSENDO Deluna. OBJECTIVE: Vital Signs Temperature 99 F 02/10/18 06:00 Pulse Rate 69 02/10/18 06:00 Respiratory Rate 20 02/10/18 06:00 Blood Pressure 141/80 02/10/18 06:00 O2 Sat by Pulse Oximetry (%) 100 02/10/18 03:00 PHYSICAL EXAM GENERAL: The patient is awake, alert, and fully oriented, in no acute distress. HEAD: Normal with no signs of trauma. EYES: PERRL, extraocular movements intact, sclera anicteric, conjunctiva clear. ENT: Ears normal, oropharynx clear without exudates, moist mucous membranes. NECK: Trachea midline, full range of motion, supple. LUNGS: Breath sounds equal, clear to auscultation bilaterally, no wheezes, no crackles, no accessory muscle use. HEART: Regular rate and rhythm, S1, S2 without murmur, rub or gallop. ABDOMEN: Soft, nontender, nondistended, normoactive bowel sounds, no guarding, no rebound, no hepatosplenomegaly, no masses. EXTREMITIES: 2+ pulses, warm, well-perfused, no edema. NEUROLOGICAL: Cranial nerves II through XII grossly intact. Normal speech, gait not observed. PSYCH: Normal mood, normal affect. SKIN: Warm, dry, normal turgor, no rashes or lesions noted. positive for nephrostomy tube, positive for mild CVA tenderness. LABS CBCD WBC 8.7 K/mm3 (4.0-10.0) 02/09/18 07:30 RBC 3.95 M/mm3 (3.60-5.2) 02/09/18 07:30 Hgb 11.2 GM/dL (10.7-15.3) 02/09/18 07:30 Hct 33.0 % (32.4-45.2) 02/09/18 07:30 MCV 83.7 fl (80-96) 02/09/18 07:30 MCHC 34.0 g/dl (32.0-36.0) 02/09/18 07:30 RDW 16.0 % (11.6-15.6) H 02/09/18 07:30 Plt Count 185 K/MM3 (134-434) 02/09/18 07:30 MPV 9.8 fl (7.5-11.1) 02/09/18 07:30 CMP Sodium 141 mmol/L (136-145) 02/09/18 07:30 Potassium 4.6 mmol/L (3.5-5.1) 02/09/18 07:30 Chloride 105 mmol/L (98-107) 02/09/18 07:30 Carbon Dioxide 27 mmol/L (21-32) 02/09/18 07:30 Anion Gap 9 (8-16) 02/09/18 07:30 BUN 8 mg/dL (7-18) 02/09/18 07:30 Creatinine 0.7 mg/dL (0.55-1.02) 02/09/18 07:30 Creat Clearance w eGFR > 60 (>60) 02/09/18 07:30 Random Glucose 88 mg/dL (74-106) 02/09/18 07:30 Calcium 8.9 mg/dL (8.5-10.1) 02/09/18 07:30 Total Bilirubin 0.4 mg/dL (0.2-1.0) 02/09/18 07:30 AST 19 U/L (15-37) 02/09/18 07:30 ALT 28 U/L (12-78) 02/09/18 07:30 Alkaline Phosphatase 75 U/L (45-117) 02/09/18 07:30 Total Protein 7.0 g/dl (6.4-8.2) 02/09/18 07:30 Albumin 3.5 g/dl (3.4-5.0) 02/09/18 07:30 Home Medications Medication Instructions Recorded NK [No Known Home Medication] 02/07/18 Current Medications Generic Name Dose Route Start Last Admin Trade Name Freq PRN Reason Stop Dose Admin Acetaminophen 650 mg 02/09/18 20:00 02/10/18 08:03 Tylenol - PO 650 mg Q4H PRN Administration PAIN Sodium Chloride 1,000 mls @ 75 mls/hr 02/07/18 22:15 02/10/18 04:00 Normal Saline - IV 75 mls/hr ASDIR ZAHIRA Administration Ceftriaxone Sodium 2 gm/ 100 mls @ 200 mls/hr 02/09/18 10:00 02/10/18 09:23 Dextrose IVPB 200 mls/hr DAILY ZAHIRA Administration Protocol Home Medications Medication Instructions Recorded Acetaminophen [Tylenol .Regular 1,000 mg PO Q8H PRN #30 tablet 02/10/18 Strength -] Cefuroxime Axetil [Ceftin -] 500 mg PO Q12H #16 tablet 02/10/18 02/08/18 12:40 Nephrostomy Tube Drainage Gram Stain - Final Microbiology 02/08/18 17:30 Urine - Urine Mendez Urine Culture - Final NO GROWTH OBTAINED 02/08/18 12:40 Nephrostomy Tube Drainage Gram Stain - Final 02/08/18 12:40 Nephrostomy Tube Drainage Body Fluid Culture - Preliminary NO AEROBIC GROWTH, 24 HRS HOSPITAL COURSE: Date of Admission:02/07/18 Date of Discharge: 02/10/18 Patient is a 42yo F with recent dx of Right nephrolithasis with failed attempt for JJ stent placement at [facility] on 02/06/18 presented here with worsening R flank pain with chills. # Acute R nephrolithasis with hydronephrosis- failed attempt at stent placement. s/p nephrostomy tube by . f/u with urology in a week time for nephrostomy tube removal. # Acute pyleo./UTI received Ceftriaxone IV will give her 8 more days of Ceftin 500mg po q12h. no growth so far. follow with ladies' locker room attendant for the result Dr. Rae also follow for laser lithtropsy in a week period. Pain: use tylenol and motirn at night if needed. 40m discharge time Minutes to complete discharge: 40 Discharge Summary Reason For Visit: CALCULUS OF RIGHT KIDNEY Current Active Problems Right kidney stone (Acute) Condition: Stable - Instructions Diet, Activity, Other Instructions: You came in with a kidney stone in your right kidney and were also found to have a urinary tract infection. We gave you antibiotics for the infection. We placed an draining tube in your kidney to help relieve the pressure and drain the fluid. Please keep the drain are clean and monitor for signs of infection such as swelling redness, warmth of the area. Please do not remove the drain until you see your urologist. We have started you on a antibiotic called Cefitin to treat your urinary tract infection. Please take Cefitin for 5 days. Please follow up in 1 week with your Urologist to remove the drain from your kidney Please follow up in 1 week with your primary care physician If you experience any burning with urination, blood in your urine, increase in back pain, fevers, chills, abdominal pain, pus draining from the tube, swelling, redness, or warmth at the drain site please come tot the ER or call 911. Referrals: Norman Rae MD [Staff Physician] - Disposition: HOME - Home Medications Comprehensive Discharge Medication List: Ambulatory Orders NK [No Known Home Medication] 02/07/18 This patient is new to me today: No Emergency Visit: Yes ED Registration Date: 02/07/18 Care time: The patient presented to the Emergency Department on the above date and was hospitalized for further evaluation of their emergent condition. Critical Care patient: No - Discharge Referral Referred to [facility] Med P.C.: No
[2018-02-10 12:20] VITALS: BP 152/84; PULSE 71; TEMP 98.7
== END 2018-02-10 13:18 | disposition home or self-care (01) ==
LOC: JER 15:55 → JERBED 21:42 → INTOOBSV 21:42 → J8W 02-08 14:15
PROVIDERS: ADMIT Internal Medicine; ATTEND Internal Medicine
PROC: 0T9030Z Drainage of Right Kidney with Drainage Device, Percutaneous Approach (ICD-10-PCS; principal; 2018-02-07)
PROC: 3E0333Z Introduction of Anti-inflammatory into Peripheral Vein, Percutaneous Approach (ICD-10-PCS; 2018-02-07)
PROC: 3E033NZ Introduction of Analgesics, Hypnotics, Sedatives into Peripheral Vein, Percutaneous Approach (ICD-10-PCS; 2018-02-07)
PROC: 3E033GC Introduction of Other Therapeutic Substance into Peripheral Vein, Percutaneous Approach (ICD-10-PCS; 2018-02-07)
PROC: 3E0337Z Introduction of Electrolytic and Water Balance Substance into Peripheral Vein, Percutaneous Approach (ICD-10-PCS; 2018-02-07)
DX: N13.2 Hydronephrosis with renal and ureteral calculous obstruction (principal); N13.6 Pyonephrosis; N39.0 Urinary tract infection, site not specified
CPT/HCPCS: 36415; 50432; 71046-TC-FY; 74176-TC; 76000-TC-FY; 76098-TC-FY; 76775-TC; 76998-TC; 80053; 81003; 81015; 83735; 84100; 84703; 85025; 85610; 85730; 86850; 86900; 86901; 87070; 87075; 87086; 87205; 87899; 93005; 93010; 96374; 96375; 96376; 97116-GP; 97161-GP; 99285-25; A4358; C1729; C1769; G0378; J0131; J7030

== ENCOUNTER 2018-02-23 09:08 | Emergency (ER) | payer OTHER ==
[2018-02-23 09:25] VITALS: BMI 29.0
[2018-02-23 10:05] LABS: URINE APPEARANCE SLCLOUDY; URINE BILIRUBIN NEGATIVE (<2.0 mg/dL); URINE COLOR LTYELLOW; URINE GLUCOSE (UA) NEGATIVE (NEGATIVE); URINE KETONE NEGATIVE (NEGATIVE); URINE NITRITE NEGATIVE (NEGATIVE); URINE PROTEIN NEGATIVE (NEGATIVE); URINE UROBILINOGEN NEGATIVE mg/dL (0.2-1.0)
[2018-02-23 10:25] LABS: URINE LEUK ESTERASE 2+ (NEGATIVE)
[2018-02-23 10:26] LABS: EPI CELLS RARE /HPF (FEW); URINE MUCUS RARE
--- NOTE | 2018-02-23 10:33 | PDOC ---
History of Present Illness - General Chief Complaint: Urinary Catheter Problem Stated Complaint: NEPHROSTOMY TUBE REMOVAL Time Seen by Provider: 02/23/18 09:37 History Source: Patient Exam Limitations: No Limitations - History of Present Illness Travel History: No Initial Comments: 02/23/18 10:00 42-year-old female returns here to have nephrostomy tube removed. Patient was told to return here 2 days after keeping her nephrostomy tube clamped. Patient with hydronephrosis earlier this month secondary to renal colic requiring her to have a nephrostomy tube placed in interventional radiology. Patient was to have lithotripsy or stent placed but since then has had past the 4 mm stone which was causing the hydronephrosis. Case discussed with Dr. Wagoner 2 days ago who recommended removal if hydronephrosis has resolved. Patient has no active fever, chills Marbach Melendez states has been urinating without difficulty since having the tube clamped 2 days ago here in the ER Timing/Duration: reports: other (none) Pain Radiation: reports: no radiation Activities at Onset: reports: none Aggravating Factors: improves with: None Alleviating Factors: improves with: None Past History - Travel Traveled outside of the country in the last 30 days: No - Past Medical History Allergies/Adverse Reactions: Allergies Allergy/AdvReac Type Severity Reaction Status Date / Time No Known Allergies Allergy Verified 02/23/18 09:22 Home Medications: Ambulatory Orders Cefuroxime Axetil [Ceftin -] 500 mg PO Q12H #16 tablet 02/10/18 Acetaminophen [Tylenol] 650 mg PO Q8H PRN 02/23/18 levoFLOXacin [Levaquin -] 500 mg PO DAILY #7 tablet 02/23/18 COPD: No Kidney Stones: Yes - Surgical History Cholecystectomy: Yes (2005) - Immunization History Immunization Up to Date: Yes - Suicide/Smoking/Psychosocial Hx Smoking History: Never smoked Have you smoked in the past 12 months: No Hx Alcohol Use: No Drug/Substance Use Hx: No Substance Use Type: None Hx Substance Use Treatment: No Patient Lives Alone: No Lives with/in: spouse/SO Review of Systems - Review of Systems Able to Perform ROS?: No Constitutional: No: Symptoms Reported HEENTM: No: Symptoms Reported Respiratory: No: Symptoms reported Cardiac (ROS): No: Symptoms Reported ABD/GI: No: Symptoms Reported : No: Symptoms Reported Musculoskeletal: No: Symptoms Reported Integumentary: No: Symptoms Reported Neurological: No: Symptoms reported Endocrine: No: Symptoms Reported Hematologic/Lymphatic: No: Symptoms Reported *Physical Exam - Vital Signs Last Vital Signs Temp Pulse Resp BP Pulse Ox 98.4 F 78 19 112/67 100 02/23/18 09:22 02/23/18 09:22 02/23/18 09:22 02/23/18 09:22 02/23/18 09:22 - Physical Exam General Appearance: Yes: Nourished, Appropriately Dressed. No: Apparent Distress Respiratory/Chest: positive: Lungs Clear, Normal Breath Sounds. negative: Respiratory Distress, Accessory Muscle Use Cardiovascular: positive: Regular Rhythm, Regular Rate. negative: Murmur Gastrointestinal/Abdominal: positive: Soft. negative: Tenderness Musculoskeletal: positive: Other (rt nephostomy tube secured and insertion site intact). negative: CVA Tenderness Extremity: positive: Normal Capillary Refill. negative: Pedal Edema Integumentary: positive: Normal Color, Warm, Moist Neurologic: positive: Motor Strength 5/5 (ambulatory) ED Treatment Course - ADDITIONAL ORDERS Additional order review: Laboratory Results 02/23/18 09:47 Urine Color Ltyellow Urine Appearance Slcloudy Urine pH 5.0 D Ur Specific [place] 1.016 Urine Protein Negative Urine Glucose (UA) Negative Urine Ketones Negative Urine Blood 2+ H Urine Nitrite Negative Urine Bilirubin Negative Urine Urobilinogen Negative Ur Leukocyte Esterase 2+ H Urine WBC (Auto) 21 Urine RBC (Auto) 8 Ur Epithelial Cells Rare Urine Mucus Rare - RADIOLOGY Radiology Studies Ordered: Category Date Time Status KIDNEY / RENAL US [US] Stat Ultrasound 02/23/18 09:41 Taken Medical Decision Making - Medical Decision Making 02/23/18 10:35 pt here for rt nephrostomy removal. Patient denies any complaints of dysuria, back pain, fever, chills or nausea. Ordered for urine and urine culture and ultrasound. 02/23/18 11:00 Laboratory Tests 02/23/18 09:47 Urine Blood 2+ H Ur Leukocyte Esterase 2+ H Urine WBC (Auto) 21 Urine RBC (Auto) 8 02/23/18 11:00 Renal ultrasound shows no hydronephrosis. Patient's previous urine culture show pseudomonas which was sensitive to Levaquin. Patient to be discharged home with Levaquin after nephrostomy tube removal 02/23/18 12:00 #20-gauge please to right antecubital. Patient given 1 mg of Ativan to decrease her anxiety. Nephrostomy tube removal was uneventful. Nephrostogram done in IR. Dry sterile dressing applied. Patient ordered for 1 L of normal saline secondary to complaints of mild dizziness and will be given something to eat and drink sinceshe did not eat since last night. 02/23/18 12:48 Patient ambulatory in the emergency room. Patient has no complaints of dizziness abdominal pain back pain or nausea. Dressing dry and intact. Patient discharged home with discharge instructions. Patient understands no bathtub or swimming in a pool for 2 weeks and to change dressing daily or as needed for the next 3 days. *DC/Admit/Observation/Transfer Diagnosis at time of Disposition: UTI (urinary tract infection) - Discharge Dispostion Disposition: HOME Condition at time of disposition: Improved - Prescriptions Prescriptions: levoFLOXacin [Levaquin -] 500 mg PO DAILY #7 tablet - Referrals - Patient Instructions Printed Discharge Instructions: DI for Urinary Tract Infection (UTI) Additional Instructions: Drink plenty of fluids. Please change dressing daily or as needed if it becomes wet with fluid. Keep area covered for the next few days and if it is not leaking you may remove bandage completely by the fourth day. Take antibiotics scheduled until completed. No going and a bath tub or swimming in a pool for the next 2 weeks. - Post Discharge Activity
[2018-02-23] MEDS ORDERED: LORazepam 2 MG/ML SDV VIAL ONE (10:58)
[2018-02-23] MEDS ORDERED: SODIUM CHLORIDE 1,000 ML IV STA (11:59)
[2018-02-23 13:33] VITALS: BP 116/65; PULSE 91; TEMP 98.6
== END 2018-02-23 13:20 | disposition home or self-care (01) ==
LOC: JER 09:08
PROC: 3E033NZ Introduction of Analgesics, Hypnotics, Sedatives into Peripheral Vein, Percutaneous Approach (ICD-10-PCS; principal; 2018-02-23)
PROC: 3E0337Z Introduction of Electrolytic and Water Balance Substance into Peripheral Vein, Percutaneous Approach (ICD-10-PCS; 2018-02-23)
DX: N39.0 Urinary tract infection, site not specified (principal)
CPT/HCPCS: 50389; 50431; 74425-TC-FY; 76000-TC-FY; 76775-TC; 81003; 81015; 87086; 96361; 96374; 99283-25; C1769; J7030

== ENCOUNTER 2018-03-13 19:15 | Emergency (ER) | payer OTHER ==
[2018-03-13 19:53] VITALS: TEMP 98.7; BMI 28.3
--- NOTE | 2018-03-13 19:54 | PDOC ---
Rapid Medical Evaluation Chief Complaint: Pain Time Seen by Provider: 03/13/18 19:49 Medical Evaluation: Allergies Allergy/AdvReac Type Severity Reaction Status Date / Time No Known Allergies Allergy Verified 02/23/18 09:22 03/13/18 19:49 c/o LUQ pain x3 days worse with movement, also reports pain with respiration. patient reports that she has been doing some lifting at work. had to move a bed and pain has been persistent since them PE: patient alert ox3. LUQ left side tenderness on palpations. no CVAT A: musculoskeletal pain? P: chest xray UA, urine 03/13/18 19:53 Discharge Disposition - Diagnosis Left sided abdominal pain - Referrals - Patient Instructions - Post Discharge Activity
[2018-03-13 20:31] LABS: HCG,QUALITATIVE URINE Negative; URINE APPEARANCE CLEAR; URINE BILIRUBIN NEGATIVE (<2.0 mg/dL); URINE COLOR LTYELLOW; URINE GLUCOSE (UA) NEGATIVE (NEGATIVE); URINE KETONE NEGATIVE (NEGATIVE); URINE NITRITE NEGATIVE (NEGATIVE); URINE PROTEIN NEGATIVE (NEGATIVE); URINE UROBILINOGEN NEGATIVE mg/dL (0.2-1.0)
[2018-03-13 20:53] LABS: URINE LEUK ESTERASE 3+ (NEGATIVE)
[2018-03-13 20:54] LABS: EPI CELLS RARE /HPF (FEW); URINE MUCUS FEW
--- NOTE | 2018-03-13 21:13 | PDOC ---
History of Present Illness - General Chief Complaint: Pain Stated Complaint: LEFT SIDE PAIN Time Seen by Provider: 03/13/18 19:49 - History of Present Illness Initial Comments: 42-year-old female without comorbidities presents for evaluation of left-sided back pain and left-sided upper abdominal pain. She states the pain started about 3 days ago slow in onset and intensified over the last 3 days. No other associated symptoms. Been taking Tylenol and Percocet for her pain given to her by her primary care provider. 03/13/18 21:11 Past History - Past Medical History Allergies/Adverse Reactions: Allergies Allergy/AdvReac Type Severity Reaction Status Date / Time No Known Allergies Allergy Verified 03/13/18 19:53 Home Medications: Ambulatory Orders NK [No Known Home Medication] 03/13/18 COPD: No Kidney Stones: Yes - Surgical History Cholecystectomy: Yes (2005) - Immunization History Immunization Up to Date: Yes - Suicide/Smoking/Psychosocial Hx Smoking History: Never smoked Have you smoked in the past 12 months: No Information on smoking cessation initiated: No Hx Alcohol Use: No Drug/Substance Use Hx: No Substance Use Type: None Hx Substance Use Treatment: No Review of Systems - Review of Systems : Yes: Flank Pain Musculoskeletal: Yes: Back Pain All Other Systems: Reviewed and Negative *Physical Exam - Vital Signs Last Vital Signs Temp Pulse Resp BP Pulse Ox 98.7 F 95 H 16 135/80 100 03/13/18 19:49 03/13/18 19:49 03/13/18 19:49 03/13/18 19:49 03/13/18 19:49 - Physical Exam Comments: HEAD: NC/AT EYES: Conjuntiva clear Ears: Canals and TM's normal NOSE: No d/c THROAT: Moist mucous membrances, oral pharanx clear, uvula midline NECK: Supple without adenopathy CARDIAC: S1 S2 LUNGS: CTA Full and Equal breath sounds ABDOMEN: Soft LUQ Tenderness, L CVAT MS: Full ROM in all joints without edema NEUROLOGIC: No gross sensory or motor deficits, NVID SKIN: Normal color and temperature no lesions or rashes 03/13/18 21:12 ED Treatment Course - ADDITIONAL ORDERS Additional order review: Laboratory Results 03/13/18 20:15 Urine Color Ltyellow Urine Appearance Clear Urine pH 5.0 Ur Specific [place] 1.016 Urine Protein Negative Urine Glucose (UA) Negative Urine Ketones Negative Urine Blood 1+ H Urine Nitrite Negative Urine Bilirubin Negative Urine Urobilinogen Negative Ur Leukocyte Esterase 3+ H Urine WBC (Auto) 17 Urine RBC (Auto) 10 Ur Epithelial Cells Rare Urine Mucus Few Urine HCG, Qual Negative Medical Decision Making - Medical Decision Making She requires further workup as well as a Tylenol level I will transfer to the main ER. 03/13/18 21:12 *DC/Admit/Observation/Transfer Diagnosis at time of Disposition: Left sided abdominal pain - Referrals - Patient Instructions - Post Discharge Activity
--- NOTE | 2018-03-13 21:50 | PDOC ---
History of Present Illness - History of Present Illness Initial Comments: 03/13/18 23:18 The patient is a 42 year old female, with no significant past medical history of , who presents to the emergency department with, 4 days of LUQ pain and left sided back pain. The patient reports taking Tylenol and Percocet, with minimal relief. She denies any worsening or alleviating factors. She denies any trauma to the area. She denies recent fevers, chills, headache or dizziness. She denies recent nausea, vomit, diarrhea or constipation. She denies recent dysuria, frequency, urgency or hematuria. She denies recent chest pain or shortness of breath. Allergies: NKA Social history: Nonsmoker. Denies EtOH use and recreational drug use. <Dony Washington - Last Filed: 03/13/18 23:27> - General History Source: Patient Exam Limitations: No Limitations <Angeles White - Last Filed: 03/14/18 02:17> - General Chief Complaint: Pain Stated Complaint: LEFT SIDE PAIN Time Seen by Provider: 03/13/18 19:49 Past History <Dony Washington - Last Filed: 03/13/18 23:27> - Past Medical History COPD: No Kidney Stones: Yes - Surgical History Cholecystectomy: Yes (2005) - Immunization History Immunization Up to Date: Yes - Suicide/Smoking/Psychosocial Hx Smoking History: Never smoked Have you smoked in the past 12 months: No Information on smoking cessation initiated: No Hx Alcohol Use: No Drug/Substance Use Hx: No Substance Use Type: None Hx Substance Use Treatment: No <Angeles White - Last Filed: 03/14/18 02:17> - Past Medical History Allergies/Adverse Reactions: Allergies Allergy/AdvReac Type Severity Reaction Status Date / Time No Known Allergies Allergy Verified 03/13/18 19:53 Home Medications: Ambulatory Orders Hyoscyamine Odt [Levsin Odt -] 0.125 mg PO DAILY #30 tab.rapdis 03/14/18 Nitrofurantoin Monohyd/M-Cryst [Macrobid -] 100 mg PO BID #14 capsule 03/14/18 Ranitidine HCl [Zantac] 150 mg PO DAILY #30 tablet 03/14/18 Review of Systems - Review of Systems Able to Perform ROS?: Yes Comments:: 03/13/18 23:18 CONSTITUTIONAL: No fever, no chills, no fatigue EYES: No visual changes ENT: No ear pain, no sore throat CARDIOVASCULAR: No chest pain, no palpitations RESPIRATORY: No cough, no SOB +GI:LUQ abdominal pain. no nausea, no vomiting, no constipation, no diarrhea GENITOURINARY: No dysuria, no frequency, no hematuria +MUSCULOSKELETAL: Left sided back pain. no joint pain, no myalgias SKIN: No rash NEURO: No headache All Other Systems: Reviewed and Negative <Dony Washington - Last Filed: 03/13/18 23:27> *Physical Exam - Vital Signs Last Vital Signs Temp Pulse Resp BP Pulse Ox 98.7 F 90 20 122/69 98 03/13/18 19:49 03/13/18 23:11 03/13/18 23:11 03/13/18 23:11 03/13/18 23:11 - Physical Exam Comments: 03/13/18 23:28 GENERAL: The patient is in no acute distress. HEAD: Normal with no signs of trauma. EYES: PERRLA, EOMI, sclera anicteric, conjunctiva clear. ENT: Ears normal, nares patent, oropharynx clear without exudates. Moist mucous membranes. NECK: Normal range of motion, supple without lymphadenopathy, JVD, or masses. LUNGS: Breath sounds equal, clear to auscultation bilaterally. No wheezes, and no crackles. HEART:Regular rate and rhythm, normal S1 and S2 without murmur, rub or gallop. +ABDOMEN: Left lower quadrant tenderness. Soft, normoactive bowel sounds. No guarding, no rebound. No masses palpable. +BACK: Pain to the left lower thoracic. EXTREMITIES: Normal range of motion, no edema. No clubbing or cyanosis. No erythema, or tenderness. NEUROLOGICAL: Cranial nerves II through XII grossly intact. Normal speech. No focal neurological deficits. MUSCULOSKELETAL: Back non-tender to palpation, no CVA tenderness SKIN: Warm, Dry, normal turgor, no rashes or lesions noted. <Dony Washington - Last Filed: 03/13/18 23:27> - Vital Signs Last Vital Signs Temp Pulse Resp BP Pulse Ox 98.7 F 95 H 16 135/80 100 03/13/18 19:49 03/13/18 19:49 03/13/18 19:49 03/13/18 19:49 03/13/18 19:49 <Angeles White - Last Filed: 03/14/18 02:17> ED Treatment Course - LABORATORY CBC & Chemistry Diagram: 03/13/18 23:00 03/13/18 23:00 - ADDITIONAL ORDERS Additional order review: Laboratory Results 03/13/18 20:15 Urine Color Ltyellow Urine Appearance Clear Urine pH 5.0 Ur Specific [place] 1.016 Urine Protein Negative Urine Glucose (UA) Negative Urine Ketones Negative Urine Blood 1+ H Urine Nitrite Negative Urine Bilirubin Negative Urine Urobilinogen Negative Ur Leukocyte Esterase 3+ H Urine WBC (Auto) 17 Urine RBC (Auto) 10 Ur Epithelial Cells Rare Urine Mucus Few Urine HCG, Qual Negative - Medications Given in the ED: ED Medications Discontinued Medications Generic Name Dose Route Start Last Admin Trade Name Yevgeniyq PRN Reason Stop Dose Admin Morphine Sulfate 4 mg 03/13/18 22:03 03/13/18 22:39 Morphine Injection - IVPUSH 03/13/18 22:04 4 mg ONCE ONE Administration <Dony Washington - Last Filed: 03/13/18 23:27> - LABORATORY CBC & Chemistry Diagram: 03/13/18 23:00 03/13/18 23:00 - ADDITIONAL ORDERS Additional order review: Laboratory Results 03/13/18 20:15 Urine Color Ltyellow Urine Appearance Clear Urine pH 5.0 Ur Specific [place] 1.016 Urine Protein Negative Urine Glucose (UA) Negative Urine Ketones Negative Urine Blood 1+ H Urine Nitrite Negative Urine Bilirubin Negative Urine Urobilinogen Negative Ur Leukocyte Esterase 3+ H Urine WBC (Auto) 17 Urine RBC (Auto) 10 Ur Epithelial Cells Rare Urine Mucus Few Urine HCG, Qual Negative <Angeles White - Last Filed: 03/14/18 02:17> Medical Decision Making - Medical Decision Making Ms Steen is a 42 yo F who was transferred back from [facility] due to left lower thoracic pain Symptoms have been present for the past 3 days No fevers or chills No rash No trauma 03/13/18 22:19 CXR: nml No free air, no consolidation, no effusion, no pneumothorax 03/13/18 23:32 03/13/18 23:43 Laboratory Tests 03/13/18 03/13/18 03/13/18 23:00 23:00 23:00 WBC 10.3 H Hgb 10.4 L Hct 30.3 L D Plt Count 161 D Neutrophils % 53.4 Lymphocytes % 31.7 D-Dimer 384 Sodium 136 Potassium 4.1 Chloride 105 Carbon Dioxide 25 BUN 11 Creatinine 0.6 Random Glucose 96 Acetaminophen 03/13/18 23:00 WBC Hgb Hct Plt Count Neutrophils % Lymphocytes % D-Dimer Sodium Potassium Chloride Carbon Dioxide BUN Creatinine Random Glucose Acetaminophen < 2.0 03/14/18 02:10 CTA chest negative for PE CT abdomen and pelvis demonstrates right-sided hydronephrosis, possibly recently passed stone. There is no pathology noted on the left side of the abdomen. She resting comfortably. Will discharged home. Last patient follow with primary care physician. Return to ER for any other concerns or complaints. Will discharge on Pepcid and hyoscyamine. Clinical impression: Abdominal pain, initial presentation Hydronephrosis, initial presentation <Angeles White - Last Filed: 03/14/18 02:17> *DC/Admit/Observation/Transfer - Attestations Scribe Attestion: 03/13/18 23:18 Documentation prepared by Dony Washington, acting as medical transcriptionist for Angeles White MD. <Dony Washington - Last Filed: 03/13/18 23:27> - Discharge Dispostion Decision to Admit order: No <Angeles White - Last Filed: 03/14/18 02:17> Diagnosis at time of Disposition: Left sided abdominal pain UTI (urinary tract infection) Qualifiers: Urinary tract infection type: acute cystitis Hematuria presence: without hematuria Qualified Code(s): N30.00 - Acute cystitis without hematuria - Discharge Dispostion Disposition: HOME Condition at time of disposition: Stable - Referrals Referrals: Ish Mckinney MD [Staff Physician] - - Patient Instructions Printed Discharge Instructions: DI for Abdominal Pain-Adult, DI for Urinary Tract Infection (UTI), DI for Gastritis Additional Instructions: Nico por entrar a la robert de emergencias Por favor revisa tus laboratorios y reportes CT Por favor y breve seguimiento con steiner mdico de atencin primaria. Por favor tome los medicamentos segn lo recetado. Por favor regrese a la robert de emergencias por cualquier otra inquietud o queja. Thank you for coming in to the ER Please review your labs and CT reports Please and short follow-up with your primary care physician. Please take medications as prescribed. Please return to the ER for any other concerns or complaints. Print Language: WOLOF - Post Discharge Activity Forms/Work/School Notes: Back to Work
[2018-03-13] MEDS ORDERED: morphine CARPU-JECT 4 MG/1 ML DISP.SYRIN IVPUSH ONE ×2 (22:03→23:25)
[2018-03-13] MEDS ORDERED: morphine SULFATE 4 MG/ML VIAL ONE ×2 (22:27→23:35)
[2018-03-13 23:12] VITALS: BP 122/69; PULSE 90
[2018-03-13 23:16] LABS: BASO % 0.3 % (0-2.0); EOS % 4.5 % (0-4.5); HEMATOCRIT 30.3 % (32.4-45.2); HEMOGLOBIN 10.4 GM/dL (10.7-15.3); LYMPH % 31.7 % (8-40); MCH 28.8 pg (25.7-33.7); MCHC 34.3 g/dl (32.0-36.0); MEAN CELL VOLUME 84.1 fl (80-96); MEAN PLT VOLUME 9.6 fl (7.5-11.1); MONO % 10.1 % (3.8-10.2); NEUT % 53.4 % (42.8-82.8); PLATELET COUNT 161 K/MM3 (134-434); RDW 15.9 % (11.6-15.6); WHITE BLOOD COUNT 10.3 K/mm3 (4.0-10.0)
[2018-03-13] MEDS ORDERED: FAMOTIDINE 20 MG/50 ML IVPB 20 MG/50 ML MG IVPB ONE ×2 (23:25→23:35)
[2018-03-13] MEDS ORDERED: IBUPROFEN 800 MG/8 ML IJ IVPB ONE ×2 (23:26→23:35)
[2018-03-13 23:42] LABS: ALBUMIN 3.8 g/dl (3.4-5.0); ALK PHOS 67 U/L (45-117); ANION GAP 6 MMOL/L (8-16); BILIRUBIN,TOTAL 0.2 mg/dL (0.2-1.0); BLOOD UREA NITROGEN 11 mg/dL (7-18); CALCIUM 8.8 mg/dL (8.5-10.1); CHLORIDE 105 mmol/L (98-107); CO2 25 mmol/L (21-32); CREATININE 0.6 mg/dL (0.55-1.02); GLUCOSE,RANDOM 96 mg/dL (74-106); POTASSIUM 4.1 mmol/L (3.5-5.1); SGOT/AST 20 U/L (15-37); SGPT/ALT 26 U/L (12-78); SODIUM 136 mmol/L (136-145); TOT PROT 7.3 g/dl (6.4-8.2)
== END 2018-03-14 03:04 | disposition home or self-care (01) ==
LOC: JER 19:15 → JERFT 19:15 → JER 03-14 03:04
PROC: 3E033GC Introduction of Other Therapeutic Substance into Peripheral Vein, Percutaneous Approach (ICD-10-PCS; principal; 2018-03-13)
PROC: 3E033NZ Introduction of Analgesics, Hypnotics, Sedatives into Peripheral Vein, Percutaneous Approach (ICD-10-PCS; 2018-03-13)
PROC: 3E0333Z Introduction of Anti-inflammatory into Peripheral Vein, Percutaneous Approach (ICD-10-PCS; 2018-03-13)
PROC: 3E033GC Introduction of Other Therapeutic Substance into Peripheral Vein, Percutaneous Approach (ICD-10-PCS; 2018-03-13)
DX: N30.00 Acute cystitis without hematuria (principal)
CPT/HCPCS: 36415; 71046-TC-FY; 71275-TC; 74177-TC; 80053; 80307; 81003; 81015; 84703; 85025; 85379; 99283-25